=== PATIENT | female | born 1985 | race Caucasian/White ===

== ENCOUNTER → 2020-06-06 09:50 | Outpatient (CLI) | payer OTHER, SELFPAY | PROVIDERS: PCP Family Medicine; Referring Provider Obstetrics & Gynecology; Visit Provider Obstetrics & Gynecology | DX: Z11.59 Encounter for screening for other viral diseases (principal) | CPT/HCPCS: 87635; C9803; U0003 ==

== ENCOUNTER 2020-06-15 05:05 | Inpatient (IN) | payer OTHER, SELFPAY ==
--- NOTE | 2020-06-13 14:09 | HP.PCM_ITS ---
History and Physical Date of Admission: 06/15/20 Pre-Op History and Physical ? HPI: The patient is a 35 year old female presenting for pre-operative visit. She is scheduled for?, for?marginal placenta previa 06/15/2020. ??Procedure discussed along with risks, benefits and complications. ?Other alternatives discussed for management. Consent form signed??Yes.? PAST MEDICAL HISTORY PAST MEDICAL HISTORY Diagnosis Date ? Antepartum anemia 04/19/2020 ? fracture age 7 ? playground accident ? 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 Migraine headache with aura 2004 ? Stopped after she discontinued eating gluten ? ? PAST SURGICAL HISTORY PAST SURGICAL HISTORY Procedure Laterality Date ? OTHER ? ? ? pylonidal cyst ? ? CURRENT MEDICATIONS Current Outpatient Medications Medication Sig Dispense Refill ? iron/vit C/fructooligosacchard (CHEWABLE IRON ORAL) Take by mouth every other day. ? ? ? MAGNESIUM ORAL Take by mouth. ? ? ? Puoleesv-Fw-Wuk-Fe-FA ( VITAMIN) tab Take 1 tablet by mouth once daily. 30 tablet 12 ? No current facility-administered medications for this visit.? ? ALLERGIES:?Metal [Other] ? PERSONAL HISTORY:? SOCIAL HISTORY Social History ? Tobacco Use ? Smoking status: Former Smoker ? ? Packs/day: 0.50 ? ? Years: 3.00 ? ? Pack years: 1.50 ? ? Types: Cigarettes ? ? Start date: 2010 ? Smokeless tobacco: Never Used ? Tobacco comment: 07/27 quit Substance Use Topics ? Alcohol use: Not Currently ? ? Comment: Seldom ? Drug use: Not Currently ? FAMILY HISTORY:? FAMILY HISTORY FAMILY HISTORY Problem Relation Age of Onset ? Alcohol/Drug Father ?drugs ? Heart Father ? ? other (Sleep apnea) Father ? ? Hypertension Mother ? ? Alcohol/Drug Sister ?drugs ? Alcohol/Drug Brother ?drugs ? Alcohol/Drug Maternal Uncle ? ? Cancer Paternal Grandmother ?leukemia? ? Diabetes Paternal Grandmother ? ? Hypertension Maternal Grandmother ? ? Prostate Cancer Paternal Grandfather ? ? Cancer Maternal Grandfather ? ? Alcohol/Drug Sister ? ? No Known Problems Sister ? ? Alcohol/Drug Brother ? ? No Known Problems Son ? ? REVIEW OF SYMPTOMS: GENERAL: denies fevers or chills ENDOCRINOLOGY: has not been on steroids Cardiology : denies palpitations or chest pain Respiratory: denies SOB or cough Hematology: denies history of prolonged bleeding or easy bruising or VTE Allergy: Denies history of personal or family history of allergy to anesthesia ? ? PHYSICAL EXAMINATION: ? VITALS:?Blood pressure 106/64, pulse 64, height 5' 1.5 (1.562 m), weight 176 lb (79.8 kg), last menstrual period 09/30/2019. ? GENERAL:??The patient is well nourished, well hydrated in no acute distress. ?, The patient is oriented to time, place, and person. NECK:?Supple. No lynphadenopathy, normal thyroid, no thyromegaly. LUNGS:?Clear to auscultation bilaterally. no wheezes, rhonchi or rales HEART:?Regular rate and rhythm, Normal heart sounds and No murmurs or gallops abd- soft, nontender, gravid ext- 2+ edema, 2+ Dtrs, no clonus ? ? IMPRESSION:?24 YOF w/?Estimated Date of Delivery: 07/06/20, ?marginal previa ? PLAN:???The risks/benefits/alternatives and personal involved for the planned?c- section?were reviewed with the patient. Her questions were answered to her satisfaction and she desires to proceed. ?Consent was signed. ?I reviewed with her postop instructions and expectations. ? ? ? I have reviewed and updated past medical and surgical history, medications and allergies. This H&P was completed in my office on 06/13/2020.
[2020-06-15] VITALS (16 sets, daily range): BP systolic 85–125; BP diastolic 39–65; PULSE 44–74; RESP 12–20; TEMP 36.2–36.7; O2SAT 98–100; BMI 33.5
--- NOTE | 2020-06-15 | PLAC_PTH ---
PATIENT: ANGEL REILLY LOC: [facility] U#:[id number] AGE/SX: 35/F ROOM: WP009 RE06/15/[address]: Dr. Kalina Peterson MD : 1985 BED: 1 DIS: 06/17/2020 SPEC #: [id number] RECD: 06/15/20 10:12 STATUS: BRIE REQ #: [id number] HERMINIA: 06/15/20 00:[address]: Kalina Peterson DEPT: SURGICAL PATHOLOGY RECD BY: Casey Fox ENTERED: 06/15/20 10:13 SP TYPE: PLACENTA OTHR DR: Dr. Speedy Bryant III, MD Tissues: Placenta, NOS Procedures: Surgery Specimen Level V HEADER OPERATION: Primary section PRE-OP DIAGNOSIS: Marginal previa TISSUE SUBMITTED: Placenta MICROSCOPIC DIAGNOSIS Melton placenta (608 gm): Umbilical cord - trivascular with no evidence of inflammation. Placental membranes - no pathologic change. Placental disc - organizing intraparenchymal hemorrhage, intravillous congestion and mild Geno-Jasvir change. AM:ramandeep 06/19/20 MICROSCOPIC DESCRIPTION Slides are reviewed. GROSS DESCRIPTION SPECIMEN: PLACENTA / CLINICAL INFORMATION: A. Weight: 3.49 kg B. Gestational Age: 37 weeks C. Sex: Male PLACENTAL WEIGHT (POST FIXATION): 608 gm PLACENTAL DIMENSIONS: 20 x 18 x 3 cm PLACENTAL SHAPE: Usual ovoid PLACENTAL WEIGHT FOR GESTATIONAL AGE: Over 99th percentile MEMBRANES - Present A. Insertion: Marginal B. Site of rupture from edge: At edge of placental disc C. Color of membrane: Sue-perales D. Abnormalities: None UMBILICAL CORD - Present A. Color: Sue-perales B. Insertion: Eccentric C. Length: 47 cm D. Diameter: 1.6 cm E. Number of vessels: Three F. Abnormalities: None PLACENTAL DISC - Present A. Color of surface: Sue-perales B. surface abnormalities: None C. Maternal cotyledons: Intact with minimal tears D. Attached retro placental clot: No clot E. Cut surface: Dark red and spongy F. Lesions: Sue-white lesion 2 x 1 cm G. Separate clot: Absent SECTIONS SUBMITTED: 1. Umbilical cord ( end notched) 2. Umbilical cord, placental end 3. Membrane roll 4. Placental disc, and maternal surfaces, lesion 5. Placental disc, and maternal surfaces 6. Placental disc, and maternal surfaces AM:ramandeep 06/18/20 TC:5 CPT: 25816
[2020-06-15] MEDS: Lactated Ringers 1,000 ML 999 ML IV (05:30)
[2020-06-15 05:49] LABS: Absolute Lymphocyte Count 2.38 X10^3/uL (0.83-4.51); Absolute Neutrophil Count 4.9 X10^3/uL (2.0-7.7); Basophil# 0.05 X10^3/uL; Basophil% 0.6 % (0-1); Eosinophil# 0.15 X10^3/uL; Eosinophils% 1.9 % (0-5); Hematocrit 31.9 % (37-47); Hemoglobin 10.2 g/dL (12.0-15.0); Lymphocyte # 2.38 X10^3/ul (4.0); Lymphocyte % 29.4 % (19-41); Mean Corpuscular Hgb 27.6 pg (27.0-32.0); Mean Corpuscular Volume 86.4 fL (81-99); Mean Platelet Vol. 11.6 fl (6.2-12.0); Monocyte# 0.45 X10^3/uL; Monocyte% 5.6 % (0-10); NRBC Flagged by Analyzer 0 % (0-5); Neutrophil # 4.94 X10^3/uL (2.7-7.7); Platelet Count 208 K/mm3 (150-450); RBC Distribution Width CV 12.7 % (11.6-14.6); RBC Distribution Width SD 39.7 fl (35.1-43.9); Red Blood Count 3.69 M/mm3 (4.2-5.4); White Blood Count 8.1 K/mm3 (4.4-11.0)
[2020-06-15] MEDS: Acetaminophen 500 MG Tablet 1000 MG PO ×4 (05:57→23:58)
[2020-06-15] MEDS: Lactated Ringers 1,000 ML 150 ML IV (06:26)
[2020-06-15] MEDS: Sodium Citrate/Citric Acid 30 ML UDC PO (06:43)
[2020-06-15] MEDS: Cefazolin 2 GM in 0.9% Normal Saline 100 ML IV (07:23)
--- NOTE | 2020-06-15 08:15 | PCM.OPRPT ---
Delivery Classification: Scheduled Final NILE: 07/06/20 Final NILE Source: US <20 weeks Gestational age: 37 Weeks and 0 Days instructional technology director: Blayne Garcia Type of Anesthesia:: Spinal Special Medications: duramorph Implants Used: None Date of Procedure: 06/15/20 Pre-Operative Diagnosis: 37-week multigravida , marginal placenta previa by ultrasound Post-Operative Diagnosis: same Description of Procedure: The patient was taken to the operating room. She was prepped and draped in the dorsal supine position with a leftward tilt. A Pfannenstiel skin incision was made approximately 2 cm above the symphysis pubis and carried through to underlying layer fascia with the scalpel. The fascia was incised incised in the midline and extended laterally with the Barnard scissors. The fascia was dissected off the rectus muscles with blunt and sharp dissection. The rectus muscles were in the midline and the peritoneum was entered bluntly. The peritoneal incision was stretched and the bladder blade was placed. The uterine incision was made in a low transverse fashion with the scalpel and extended superiorly and inferiorly with blunt dissection. The amniotic membranes were ruptured bluntly and clear amniotic fluid returned. The 's head was brought to the incision in the flexed position and delivered without difficulty. The remainder of the infant was delivered with gentle traction and fundal pressure in the standard fashion. The mouth and nares were bulb suctioned. The cord was clamped and cut as the was stimulated. Cord clamping was delayed. The infant was handed off to the waiting nursing staff. The placenta was delivered with fundal massage and gentle traction in the standard fashion. The uterus was exteriorized and cleared of all clots and debris. There was minimal bleeding from the lower uterine segment and the uterus clamped down nicely with the IV Pitocin. The cervix was dilated with a ring forcep. The uterine incision was closed with #1 Vicryl in a running locked fashion. A second layer of the same suture was used in an imbricating fashion. There was a small hematoma and some oozing from the incision on the left corner. 2 rtezfm-cu-nuxwl's were placed around this sinus and hemostasis was noted. The hematoma was not expanding. Some fibrillar was placed over the area and some Destiney over the incision. Excellent hemostasis was noted. The incision was examined and was found to be hemostatic. The uterus was placed back into the peritoneal cavity and hemostasis was again confirmed. The rectus muscles were examined and any bleeding was Bovie cauterized. The parietal peritoneum and rectus muscles were closed en bloc with an 0 Vicryl running suture. The surgical teams outer gloves were then changed. Destiney was placed over every layer. The rectus fascia was examined and any bleeding was Bovie cauterized and the rectus fascia was closed with 1 Vicryl suture in a running standard fashion. The subcutaneous tissue was examining and any bleeding was Bovie cauterized. The subcutaneous tissue was reapproximated with 3-0 Vicryl suture. The skin was closed in a subcuticular fashion by the POST GRADUATE INTERN with me present in the labor and delivery suite. I performed the remainder of the procedure with assistance. All sponge, lap, and needle counts were correct. The patient was taken to her room for recovery in a stable condition. Start time: 0747 Stop time: 0824 Delivery time: 0750 Amniotic Membrane Rupture Type: Artificial Amniotic Fluid Description: Clear Placenta Disposition: Sent to Pathology Drain: Bach to straight drain Fluids Replaced: 800cc Cord Entanglement: None Cord Vessel Description: 3 Vessels Esitmated Blood Loss (ml): 800 Infant Gender: Male - Jorge (1 minute): 8 (5 minute): 9 Delayed cord clamping: Yes Antibiotic Given: Ancef 2 grams IV x1 Complications: None - Admit VTE Documentation VTE Present on Admission: No VTE Mechan Device Prophylaxis: SCD's VTE Pharm Prophylaxis ordered?: No
[2020-06-15] MEDS: Oxytocin 30 units/NS 500 ml 30 UNITS/500 ML IV.SOLN 167 UNITS IV (08:45)
--- NOTE | 2020-06-15 09:28 | NURSING ---
pt assymptomatic. pt denies feeling lightheaded or dizzy.
--- NOTE | 2020-06-15 10:47 | NURSING ---
addendum to OR Record. Surgicel Fibrillar x1 used. Lot#[id number], EXP: 10-21-21
[2020-06-15] MEDS: Senna/Docusate Sodium 1 Tablet PO (11:43)
[2020-06-15] MEDS: Lactated Ringers 1,000 ML 100 ML IV (11:45)
[2020-06-15] MEDS: Ketorolac 30 MG/ML Syringe IV ×2 (13:31→19:51)
[2020-06-15] MEDS: 0.9% Saline Lock 10 ML Syringe IV ×2 (17:31→19:50)
--- NOTE | 2020-06-16 02:05 | NURSING ---
patient requested IV be taken out at this time. Educated patient about IV pain relief and other options. Patient still requested IV taken out. This RN consulted with Aruna REYNOLDS (charge nurse) and given vital signs, controlled bleeding and ability to void, decision made to pursue patient wishes.
[2020-06-16] MEDS: Naproxen 250 MG Tablet 500 MG PO ×3 (02:09→18:05)
[2020-06-16 03:39] VITALS: BP 117/44; PULSE 53; RESP 14; TEMP 36.6
[2020-06-16 04:39] LABS: Hematocrit 29.2 % (37-47); Hemoglobin 9.3 g/dL (12.0-15.0); Mean Corp Hgb Conc 31.8 g/dL (32-36); Mean Corpuscular Hgb 27.5 pg (27.0-32.0); Mean Corpuscular Volume 86.4 fL (81-99); Mean Platelet Vol. 11.2 fl (6.2-12.0); Platelet Count 177 K/mm3 (150-450); RBC Distribution Width CV 12.9 % (11.6-14.6); RBC Distribution Width SD 40.8 fl (35.1-43.9); Red Blood Count 3.38 M/mm3 (4.2-5.4); White Blood Count 10.3 K/mm3 (4.4-11.0)
--- NOTE | 2020-06-16 05:58 | PCM.PN.OB ---
Subjective: Patient is doing well. She is up ambulating out of bed currently. She reports her pain is well controlled. She denies chest pain, shortness of breath, lightheadedness, dizziness, leg pain. Lochia normal. Tolerating regular diet without nausea or vomiting. Spontaneously voiding and has had a bowel movement. - Physical Exam Vitals/I&O's: Vital Signs Temp Pulse Resp BP Pulse Ox 97.9 F 53 L 14 117/44 L 100 06/16/20 03:39 06/16/20 03:39 06/16/20 03:39 06/16/20 03:39 06/15/20 19:35 Oxygen Delivery Method Room Air Weight: 177 lb 8 oz Body Mass Index (BMI) 33.5 Intake and Output for Last 24 Hours 06/14/20 06/15/20 06/16/20 23:59 23:59 23:59 Intake Total 2569.05 / 2569.05 Output Total 1360 / 1360 400 / 400 Balance 1209.05 / 1209.05 -400 / -400 General: Alert, No apparent distress HEENT: Atraumatic Abdomen: Non-Distended Extremities: No edema Skin: No rashes Neurological: Neuro grossly intact Psych/Mental Status: Normal Affect, Appropriate Laboratory Results 06/15/20 05:30: Blood Type A POSITIVE, Antibody Screen NEGATIVE 06/15/20 05:30: Crossmatch See Detail 06/16/20 04:30: WBC 10.3, RBC 3.38 L, Hgb 9.3 L, Hct 29.2 L, MCV 86.4, MCH 27.5, MCHC 31.8 L, RDW Std Deviation 40.8, RDW Coeff of Damir 12.9, Plt Count 177, MPV 11.2 Current Medications Acetaminophen (Tylenol) 1,000 mg PO Q6 [facility] Last Admin: 06/15/20 23:58 Dose: 1,000 mg Documented by: Bisacodyl (Dulcolax) 10 mg RECTAL UD PRN PRN Reason: If no BM Diphenhydramine HCl (Benadryl) 25 mg PO Q6H PRN PRN PRN Reason: ITCHING Stop: 06/16/20 08:51 Hydrocortisone (Hytone) 1 applic TOPICAL TID PRN PRN; Protocol PRN Reason: Discomfort Naloxone HCl 4 mg/ Dextrose 504 mls @ 0 mls/hr IV .Q0M PRN; Protocol PRN Reason: To maintain Resp. rate >10 Methylergonovine Maleate (Methergine) 0.2 mg IM X1 PRN PRN Reason: Uterine Atony Nalbuphine HCl (Nubain) 5 mg IV Q3H PRN PRN PRN Reason: ITCHING Stop: 06/16/20 08:51 Naloxone HCl (Narcan) 0.02 mg IV Q1M PRN PRN Reason: RR< 10 AND PT UNRESPONSIVE Naproxen (Naprosyn) 500 mg PO Q8H [facility] Last Admin: 06/16/20 02:09 Dose: 500 mg Documented by: Ondansetron HCl (Zofran) 4 mg IV Q4H PRN PRN PRN Reason: Nausea Oxycodone HCl (Oxyir) 5 - 10 mg PO Q4H PRN PRN PRN Reason: Pain Score 4-10/10 Prochlorperazine Edisylate (Compazine Iv) 10 mg IV Q6H PRN PRN PRN Reason: NAUSEA Senna/Docusate Sodium (Senokot-S, Elle-Colace) 0 tablet PO DAILY [facility] Last Admin: 06/15/20 11:43 Dose: 1 tablet Documented by: Simethicone (Mylicon) 80 mg PO PCHS PRN PRN Reason: Indigestion/stomach pain Sodium Chloride () 5 - 15 ml IV UD PRN PRN Reason: SALINE FLUSH Last Admin: 06/15/20 19:50 Dose: 10 ml Documented by: Medical Necessity - Tobacco Use Smoking Status: Former smoker Assessment/Plan Patient is postoperative day 1 after a section. She is doing well. Pain is controlled. She is hemodynamically stable. CBC reviewed from this morning. Disposition: Anticipate discharge home tomorrow.
[2020-06-16] MEDS: Acetaminophen 500 MG Tablet 1000 MG PO ×3 (06:01→18:02)
[2020-06-16 08:27] VITALS: BP 93/46; PULSE 58; RESP 16; TEMP 36.6
[2020-06-16] MEDS: Senna/Docusate Sodium 1 Tablet PO (10:01)
[2020-06-16 13:01] VITALS: BP 92/45; PULSE 70; RESP 16; TEMP 36.7
[2020-06-16 21:25] VITALS: BP 113/38; PULSE 67; RESP 18; TEMP 36.9; O2SAT 97
[2020-06-16] MEDS: oxyCODONE 5 MG Tablet PO (22:33)
[2020-06-16 23:06] VITALS: BP 109/47
[2020-06-17] MEDS: Acetaminophen 500 MG Tablet 1000 MG PO ×3 (00:05→14:08)
[2020-06-17] MEDS: Naproxen 250 MG Tablet 500 MG PO ×2 (01:46→09:54)
[2020-06-17 01:49] VITALS: BP 108/44; PULSE 73; RESP 16; TEMP 37
[2020-06-17 08:30] VITALS: BP 102/55; PULSE 68; RESP 16; TEMP 36.7
[2020-06-17] MEDS: oxyCODONE 5 MG Tablet PO (08:50)
[2020-06-17] MEDS: Senna/Docusate Sodium 1 Tablet PO (09:54)
--- NOTE | 2020-06-17 10:54 | PCM.PN.OB ---
Subjective: Patient is doing well. Ambulating and voiding without difficulty. Tolerating regular diet without nausea or vomiting. She denies lightheadedness, dizziness, chest pain, shortness of breath, leg pain. Lochia normal. - Physical Exam Vitals/I&O's: Vital Signs Temp Pulse Resp BP Pulse Ox 98.1 F 68 16 102/55 L 97 06/17/20 08:30 06/17/20 08:30 06/17/20 08:30 06/17/20 08:30 06/16/20 21:25 Oxygen Delivery Method Room Air Weight: 177 lb 8 oz Body Mass Index (BMI) 33.5 Intake and Output for Last 24 Hours 06/15/20 06/16/20 06/17/20 23:59 23:59 23:59 Intake Total 2569.05 / 2569.05 Output Total 1360 / 1360 400 / 400 Balance 1209.05 / 1209.05 -400 / -400 General: Alert, No apparent distress HEENT: Atraumatic Abdomen: Soft, - - ATTP, FF, dressing c/d/i Extremities: No Calf Tenderness, Edema Skin: No rashes Neurological: Neuro grossly intact Psych/Mental Status: Normal Affect, Appropriate Laboratory Results 06/15/20 05:30: Crossmatch See Detail Current Medications Acetaminophen (Tylenol) 1,000 mg PO Q6 [facility] Last Admin: 06/17/20 06:07 Dose: 1,000 mg Documented by: Bisacodyl (Dulcolax) 10 mg RECTAL UD PRN PRN Reason: If no BM Hydrocortisone (Hytone) 1 applic TOPICAL TID PRN PRN; Protocol PRN Reason: Discomfort Naloxone HCl 4 mg/ Dextrose 504 mls @ 0 mls/hr IV .Q0M PRN; Protocol PRN Reason: To maintain Resp. rate >10 Methylergonovine Maleate (Methergine) 0.2 mg IM X1 PRN PRN Reason: Uterine Atony Naloxone HCl (Narcan) 0.02 mg IV Q1M PRN PRN Reason: RR< 10 AND PT UNRESPONSIVE Naproxen (Naprosyn) 500 mg PO Q8H [facility] Last Admin: 06/17/20 09:54 Dose: 500 mg Documented by: Ondansetron HCl (Zofran) 4 mg IV Q4H PRN PRN PRN Reason: Nausea Oxycodone HCl (Oxyir) 5 - 10 mg PO Q4H PRN PRN PRN Reason: Pain Score 4-10/10 Last Admin: 06/17/20 08:50 Dose: 5 mg Documented by: Prochlorperazine Edisylate (Compazine Iv) 10 mg IV Q6H PRN PRN PRN Reason: NAUSEA Senna/Docusate Sodium (Senokot-S, Elle-Colace) 0 tablet PO DAILY [facility]ANDA Last Admin: 06/17/20 09:54 Dose: 1 tablet Documented by: Simethicone (Mylicon) 80 mg PO PCHS PRN PRN Reason: Indigestion/stomach pain Last Admin: 06/16/20 10:01 Dose: 80 mg Documented by: Sodium Chloride () 5 - 15 ml IV UD PRN PRN Reason: SALINE FLUSH Last Admin: 06/15/20 19:50 Dose: 10 ml Documented by: Medical Necessity - Tobacco Use Smoking Status: Former smoker Assessment/Plan Patient is postoperative day 2 from a section. She is doing well. She desires to go home today. Reviewed discharge instructions.
--- NOTE | 2020-06-17 10:57 | DCINST_ITS ---
Discharge Diet: No Restrictions Discharge Activity: May Not Drive, May Shower May resume sexual activity in: 6 weeks Ice area for (Minutes): 15 Weight Bearing Status: Weight bearing as tolerated Lifting Restrictions: Nothing heavier than baby Call your doctor if your incision/area has: Sudden Increased Bleeding, Increased Pain/ Swelling, Increased Redness, Foul Smelling Discharge, Swelling at the incision site Call your doctor if you observe: Fever of 101 or Higher, Inability to urinate, Inability to have a bowel movement, Using more than one pad per hour, Shortness of breath, Dizziness, Fainting spells, Swelling in the ankles, Chest pain, Increased palpitations (irregular heartbeat), Calf discomfort, Uncontrolled pain Suture Line Care: Avoid Pulling/Pushing, Avoid Pinching/Bending Remove Dressing in (days):: 2 Cleanse incision/area with: Soap & Water Additional Instructions: If you experience any of the following, contact your healthcare provider. * Bleeding that soaks a pad every hour for 2 hours * Fever 100.4 or higher * Unrelieved incision or abdominal pain * Swelling, redness, discharge or bleeding from your incision or episiotomy site * Your incision begins to separate * Problems urinating (including inability to urinate or burning while ur inating). * Visual changes * Severe headache * Flu-like symptoms * Pain or redness in one of both of your breasts * Pain, warmth, tenderness or swelling in your legs, especially the calf area * Frequent nausea and vomiting * Symptoms of depression or anxiety If you experience any of the following, call 911 or go to the nearest Emergency Room. * Chest pain * Problems breathing * Seizure activity * Partial or complete paralysis of a body part, slurred speech, weakness or drooping of the face, or a sudden inability to walk or hold your balance Allergies/Adverse Reactions: Allergies contact metal agent Adverse Reaction (Verified 06/15/20 05:28) Rash Medications to take at Discharge Ferrous Sulfate [Iron] 325 mg PO 06/15/20 Magnesium 06/15/20 Tablet 1 tab PO DAILY 06/15/20 Docusate Sodium [Colace] 100 mg PO BID PRN PRN #30 cap 06/17/20 Ibuprofen [Motrin] 600 mg PO Q6H PRN PRN #30 tab 06/17/20 Oxycodone HCl/Acetaminophen [Percocet 5/325] 1 tablet PO Q6H PRN PRN 7 Days #20 tablet 06/17/20 The following prescriptions were given: Docusate Sodium [Colace] 100 mg PO BID PRN PRN #30 cap PRN Reason: Constipation Transmission Status: Pending to [id number] Ibuprofen [Motrin] 600 mg PO Q6H PRN PRN #30 tab PRN Reason: Pain Score 4-10/10 Transmission Status: Pending to [id number] Oxycodone HCl/Acetaminophen [Percocet 5/325] 1 tablet PO Q6H PRN PRN 7 Days #20 tablet PRN Reason: Pain Score 6-10/10 Transmission Status: Received by [id number] Follow-Up: Call to make an appointment with your doctor for an incision check in 1-2 weeks. You will also need a 6 week post- follow up appointment. Test results from this visit will be discussed in further detail at your follow- up appointment, if applicable. When: 1 week for incision check and 6 week Primary Care Physician: Speedy Bryant III, MD [Primary Care Provider] -
[2020-06-17 14:00] VITALS: BP 104/58; PULSE 68; RESP 16; TEMP 36.9
[2020-06-20 14:30] LABS: Pathology Specimen OB SEE PATHOLOGY REPORT
== END 2020-06-17 14:45 | disposition home or self-care (01) | DRG 788 ==
PROVIDERS: Admitting Provider Obstetrics & Gynecology; PCP Family Medicine; Referring Provider Obstetrics & Gynecology; Visit Provider Obstetrics & Gynecology
PROC: 10D00Z1 Extraction of Products of Conception, Low, Open Approach (ICD-10-PCS; CPT 59514; principal; 2020-06-15 07:15)
DX: O44.23 Partial placenta previa NOS or without hemorrhage, third trimester (principal); O99.02 Anemia complicating childbirth; D64.9 Anemia, unspecified; Z3A.37 37 weeks gestation of pregnancy; Z37.0 Single live birth; Z87.891 Personal history of nicotine dependence
CPT/HCPCS: 85025; 85027; 86850; 86900; 86901; 86920; 88307; 99218; 99251; J7120; A4216; G0378; G0463; J2405

== ENCOUNTER → 2023-01-13 | Outpatient (CLI) | payer OTHER, SELFPAY ==
[2023-01-13 13:37] LABS: Vitamin B12 529 pg/mL (211-911)
[2023-01-13 14:14] LABS: Ferritin 38 ng/mL (8-252); Free T3 2.7 pg/mL (2.18-3.98); Magnesium 2.1 mg/dL (1.6-2.6); T4 Free Direct 1.17 ng/dL (0.76-1.46); Thyroid Stim Hormone (TSH) 0.71 uIU/mL (0.358-3.74)
[2023-01-16 11:09] LABS: Beef <0.10 kU/L (Class 0); Chocolate <0.10 kU/L (Class 0); Corn <0.10 kU/L (Class 0); Egg, Whole <0.10 kU/L (Class 0); Milk (Cow) <0.10 kU/L (Class 0); Peanut <0.10 kU/L (Class 0); Pork <0.10 kU/L (Class 0); Soybean <0.10 kU/L (Class 0); Wheat <0.10 kU/L (Class 0)
[2023-01-22 10:09] LABS: Anti-Thyroglobulin AB < 1.0 IU/mL (0.0-0.9); Thyroglobulin, Serum Qt. 10.4 ng/mL (1.5-38.5); Thyroid Peroxidase AB < 9 IU/mL (0-34)
== END | disposition home or self-care (01) ==
LOC: MFPLAB 11:02
PROVIDERS: PCP Family Medicine; Visit Provider Family Medicine
DX: R53.83 Other fatigue (principal)
CPT/HCPCS: 36415; 81291; 82607; 82728; 83735; 84432; 84439; 84443; 84481; 86003; 86005; 86376; 86800

== ENCOUNTER → 2024-02-01 | Outpatient (CLI) | payer OTHER, SELFPAY | END | disposition home or self-care (01) | LOC: MFPLAB 09:02 | PROVIDERS: PCP Family Medicine; Visit Provider Family Medicine | DX: R53.83 Other fatigue (principal) | CPT/HCPCS: 36415; 82533 ==

== ENCOUNTER → 2025-09-04 | Outpatient (CLI) | payer OTHER, SELFPAY ==
[2025-09-04 12:29] LABS: Hematocrit 38.0 % (37-47); Hemoglobin 12.7 g/dL (12.0-15.0); Immature Granulocytes Count 0.020 X10^3/uL (0.0-0.0); Mean Corp Hgb Conc 33.4 g/dL (32-36); Mean Corpuscular Volume 87.2 fL (81-99); Mean Platelet Vol. 9.8 fl (6.2-12.0); NRBC Flagged by Analyzer 0 % (0-5); Platelet Count 369 K/mm3 (150-450); RBC Distribution Width CV 11.9 % (11.6-14.6); RBC Distribution Width SD 38.3 fl (35.1-43.9); Red Blood Count 4.36 M/mm3 (4.2-5.4); White Blood Count 8.3 K/mm3 (4.4-11.0)
[2025-09-04 12:46] LABS: AST(SGOT) 20 U/L (<=31); Alanine Aminotransfer ALT/SGPT 12 U/L (<=34); Albumin, Serum 4.6 g/dL (3.5-5.0); Alkaline Phosphatase 90 U/L (35-104); Anion Gap 11 (5-15); BUN 10 mg/dL (4-19); BUN/Creat Ratio 13.7 RATIO (10-20); Calcium,Total 9.6 mg/dL (7.6-11.0); Carbon Dioxide 25.4 mmol/L (21.0-32.0); Chloride 101 mmol/L (98-108); Cholesterol 152 mg/dL (<=200); Ferritin 84 ng/mL (22-378); Globulin 3.4 g/dL (2.2-4.2); Glucose 100 mg/dL (70-99); Low Density Lipoprotein Calc. 85 mg/dL; Potassium 4.0 mmol/L (3.3-5.1); Triglycerides 46 mg/dL; Very Low Density Lipoprotein 9 mg/dL (5-40); Vitamin B12 641 pg/mL (180-914); Vitamin D,25 Hydroxy 25.7 ng/mL (30-100); cholesterol:hdl ratio screen 2.67
[2025-09-04 13:08] LABS: Iron 62 ug/dL (50-170); Iron Binding Capacity,Total 285 ug/dL (250-450); Iron Binding Capacity,Unsat 223 ug/dL (228-428); Magnesium 2.2 mg/dL (1.5-2.2)
== END | disposition home or self-care (01) ==
LOC: VSLAB 08:56
PROVIDERS: Referring Provider Family Medicine; Visit Provider Family Medicine
DX: R53.83 Other fatigue (principal)
CPT/HCPCS: 36415; 80053; 80061; 82306; 82607; 82728; 83036; 83540; 83550; 83735; 84443; 85025